=== PATIENT | male | born 1990 | race Two or more races ===

== ENCOUNTER 2024-12-22 06:07 | Emergency (ER) | payer OTHER ==
[~2024-12-22] VITALS: Ht 170.2 cm; Wt 72.6 kg
== END 2024-12-22 12:25 | disposition home or self-care (01) ==
LOC: ER 06:07
DX: S80.02XA Contusion of left knee, initial encounter (principal); S60.212A Contusion of left wrist, initial encounter; W18.39XA Other fall on same level, initial encounter; Y93.89 Activity, other specified; Y92.89 Other specified places as the place of occurrence of the external cause; Z88.6 Allergy status to analgesic agent